=== PATIENT | male | born 1975 | race Caucasian/White ===

== ENCOUNTER 2025-01-14 03:04 | Emergency (ER) | payer SELFPAY ==
[~2025-01-14] VITALS: Ht 177.8 cm; Wt 104.5 kg
[2025-01-14 03:20] VITALS: BP 0/0; RESP 16; O2SAT 99
== END 2025-01-14 04:12 | disposition left against medical advice (07) ==
LOC: EMS 03:14
DX: F10.129 Alcohol abuse with intoxication, unspecified (principal); Z53.29 Procedure and treatment not carried out because of patient's decision for other reasons; Y90.9 Presence of alcohol in blood, level not specified
CPT/HCPCS: 99283; Z7502